=== PATIENT | male | born 1990 | race Caucasian/White ===

== ENCOUNTER 2016-12-07 11:05 | Emergency (ER) | payer OTHER ==
[~2016-12-07] VITALS: Ht 170.2 cm; Wt 68.2 kg
[~2016-12-07 11:05] MED LIST: NO HOME MEDICATIONS; ZITHROMAX Z PA250 MG PO
[2016-12-07 11:06] VITALS: BP 154/70; TEMP 97.6
[2016-12-07] MEDS ORDERED: PRILOSEC 20MG20 MG PO (11:10)
[2016-12-07 12:57] VITALS: PULSE 80
== END 2016-12-07 12:59 | disposition home or self-care (01) ==
LOC: COL.ER 11:05
DX: S06.0X9A Concussion with loss of consciousness of unspecified duration, initial encounter (principal); S00.81XA Abrasion of other part of head, initial encounter; S00.31XA Abrasion of nose, initial encounter; S00.83XA Contusion of other part of head, initial encounter; R40.2362 Coma scale, best motor response, obeys commands, at arrival to emergency department; R40.2142 Coma scale, eyes open, spontaneous, at arrival to emergency department; R40.2252 Coma scale, best verbal response, oriented, at arrival to emergency department; W18.39XA Other fall on same level, initial encounter; Y92.414 Local residential or business street as the place of occurrence of the external cause

== ENCOUNTER 2021-01-30 10:02 | Outpatient (RCR) | payer SELFPAY ==
[~2021-01-30 10:02] MED LIST changes: +PRILOSEC 20MG20 MG PO
== END 2021-01-30 11:00 | disposition home or self-care (01) ==
LOC: WSC 10:02
DX: M54.2 Cervicalgia (principal)

== ENCOUNTER → 2021-03-01 | Outpatient (CLI) | payer SELFPAY ==
[~2021-03-01] MED LIST changes: +AMOXICILLIN 8751 TAB PO; +AMOXICILLIN875 MG PO; +DEPAKOTE 125MG125 M1 PO; +LEXAPRO 10MG10 MG PO; +NORCO 325 MG-51 TAB PO
== END ==
LOC: COL.RAD 07:11
DX: M54.2 Cervicalgia (principal)

== ENCOUNTER 2021-03-06 09:06 | Emergency (ER) | payer SELFPAY ==
[~2021-03-06] VITALS: Ht 170.2 cm; Wt 63.6 kg
[~2021-03-06 09:06] MED LIST changes: -AMOXICILLIN 8751 TAB PO; -AMOXICILLIN875 MG PO; -DEPAKOTE 125MG125 M1 PO; -LEXAPRO 10MG10 MG PO; -NORCO 325 MG-51 TAB PO
[2021-03-06 09:12] VITALS: BP 115/75; TEMP 97.9
[2021-03-06] MEDS ORDERED: NORCO 325 MG-51 TAB PO (09:58)
[2021-03-06] MEDS ORDERED: AMOXICILLIN 8751 TAB PO (10:13)
[2021-03-06 10:15] VITALS: PULSE 80
== END 2021-03-06 10:15 | disposition home or self-care (01) ==
LOC: COL.ER 09:06
DX: S62.636A Displaced fracture of distal phalanx of right little finger, initial encounter for closed fracture (principal); S61.216A Laceration without foreign body of right little finger without damage to nail, initial encounter; F17.210 Nicotine dependence, cigarettes, uncomplicated; W23.0XXA Caught, crushed, jammed, or pinched between moving objects, initial encounter

== ENCOUNTER 2021-03-08 06:24 | Day surgery (SDC) | payer SELFPAY ==
[~2021-03-08] VITALS: Ht 170.2 cm; Wt 67.4 kg
[~2021-03-08 06:24] MED LIST changes: +AMOXICILLIN 8751 TAB PO; +NORCO 325 MG-51 TAB PO
[2021-03-08 07:16] VITALS: BP 124/71; PULSE 63; TEMP 97.3
[2021-03-08] MEDS ORDERED: AMOXICILLIN875 MG PO (07:28)
[2021-03-08] MEDS ORDERED: NORCO 325 MG-51 TAB PO (07:28)
[2021-03-08] MEDS ORDERED: DEPAKOTE 125MG125 M1 PO ×2 (07:29)
[2021-03-08] MEDS ORDERED: LEXAPRO 10MG10 MG PO (07:30)
--- NOTE | 2021-03-08 07:32 | NUR ---
TO RM 5 AT 0645- CALL LIGHT IN REACH AT BEDSIDE.
[2021-03-08 10:14] VITALS: BP 117/67; PULSE 74; TEMP 97.4
--- NOTE | 2021-03-08 10:14 | NUR ---
TO RM 5 PER CART. AWAKE, BUT SPEECH IS STILL SLURRED. VERY TALKITIVE. AT BEDSIDE. DR GOLD TALKING WITH PATIENT AND . DRESSING CLEAN AND INTACT. PATIENT MOVING HAND AROUND. ENCOURAGED TO KEEP HAND ELEVATED.
[2021-03-08 10:30] VITALS: BP 127/79; PULSE 62
--- NOTE | 2021-03-08 10:30 | NUR ---
DENIES PAIN OR DISCOMFORT. DENIES NAUSEA RECEIVED WATER AND APPLESAUCE.
[2021-03-08 10:45] VITALS: BP 120/82; PULSE 62
--- NOTE | 2021-03-08 10:45 | NUR ---
ATE 100% AND TOLERATED WELL.
--- NOTE | 2021-03-08 11:00 | NUR ---
AMBULATED TO BATHROOM. VOIDED AND AMBULATED BACK TO BED.
--- NOTE | 2021-03-08 11:10 | NUR ---
RECEIVED DISCHARGE INSTRUCTIONS AND VERBALIZED UNDERSTANDING. DISCONTINUED IV AND INT. PATIENT GETTING DRESSED.
--- NOTE | 2021-03-08 11:20 | NUR ---
DISCHARGED PER WC BY NURSING STAFF TO PRIVATE CAR IN CARE OF KIERRA.
== END 2021-03-08 11:38 | disposition home or self-care (01) ==
LOC: SDCO 06:24
DX: S62.636B Displaced fracture of distal phalanx of right little finger, initial encounter for open fracture (principal); K21.9 Gastro-esophageal reflux disease without esophagitis; Z79.899 Other long term (current) drug therapy; Z20.822 Contact with and (suspected) exposure to COVID-19; F17.210 Nicotine dependence, cigarettes, uncomplicated; D64.9 Anemia, unspecified; F32.9 Major depressive disorder, single episode, unspecified; W29.3XXA Contact with powered garden and outdoor hand tools and machinery, initial encounter
CPT/HCPCS: J0690; J1885; J2704; J3010; J7120

== ENCOUNTER 2021-12-22 17:13 | Emergency (ER) | payer SELFPAY ==
[~2021-12-22] VITALS: Ht 170.2 cm; Wt 68.2 kg
[~2021-12-22 17:13] MED LIST changes: +AMOXICILLIN875 MG PO; +DEPAKOTE 125MG125 M1 PO; +LEXAPRO 10MG10 MG PO
[2021-12-22 17:20] VITALS: TEMP 97.5
[2021-12-22] MEDS ORDERED: CEPHALEXIN500 M1 PO (18:07)
[2021-12-22 18:15] VITALS: BP 110/68; PULSE 81
== END 2021-12-22 18:15 | disposition home or self-care (01) ==
LOC: COL.ER 17:13
DX: S61.011A Laceration without foreign body of right thumb without damage to nail, initial encounter (principal); F17.210 Nicotine dependence, cigarettes, uncomplicated; W31.1XXA Contact with metalworking machines, initial encounter